=== PATIENT | male | born 1950 | race Hispanic/Latino ===

== ENCOUNTER 2020-08-11 06:22 | Day surgery (SDC) | payer MEDICARE ==
[2020-08-11] MEDS ORDERED: ASPIRIN EC 325 MG TAB PO ONE (06:48)
[2020-08-11 07:09] LABS: Basophils % (Auto) 0.5 % (0.0-1.8); Eosinophils # (Auto) 0.2 K/mm3 (0.0-0.4); Eosinophils % (Auto) 3.6 % (0.0-4.3); Hematocrit 42.8 % (35.5-45.6); Hemoglobin 15.1 gm/dl (11.8-15.2); Lymphocytes # (Auto) 1.6 K/mm3 (1.2-5.4); Lymphocytes % (Auto) 25.7 % (13.4-35.0); Mean Corpuscular HGB Conc 35 % (32-34); Mean Corpuscular Volume 99 fl (84-94); Monocytes # (Auto) 0.6 K/mm3 (0.0-0.8); Monocytes % (Auto) 9.1 % (0.0-7.3); Platelet Count 215 K/mm3 (140-440); Red Blood Count 4.32 M/mm3 (3.65-5.03); Red Cell Distribution Width 13.4 % (13.2-15.2)
[2020-08-11 07:19] LABS: INR 0.97 (0.87-1.13)
[2020-08-11 07:20] LABS: Partial Thromboplastin Time 29.3 Sec. (24.2-36.6)
[2020-08-11 07:27] LABS: Blood Urea Nitrogen 13 mg/dL (9-20); Calcium 9.1 mg/dL (8.4-10.2); Hemolysis Index 5
[2020-08-11 07:40] LABS: BUN/Creatinine Ratio 19
[2020-08-11] MEDS: SODIUM CHLORIDE 0.9% 500 ML 500 ML IV SCH ×2 (07:50→08:58)
[2020-08-11] MEDS ORDERED: HEPARIN/NS 5000 UNIT/500ML 1,000 ML IR ONE (08:14)
[2020-08-11] MEDS ORDERED: LIDOCAINE (2%) 20 MG/1 ML VIAL 20 ML MDV INFILTRATI ONE (08:15)
[2020-08-11] MEDS ORDERED: NITROGLYCERIN SYRINGE 3 ML ONE (08:15)
[2020-08-11] MEDS ORDERED: VERAPAMIL 5 MG/2 ML INJ ONE (08:15)
[2020-08-11] MEDS: fentaNYL 100 MCG/2 ML INJ ONE ×2 (08:54→09:00)
[2020-08-11] MEDS: MIDAZOLAM 2 MG/2 ML INJ ONE ×2 (08:54→09:00)
[2020-08-11] MEDS: HEPARIN 10,000 UNITS/10 ML VIAL ONE ×2 (08:57→09:04)
[2020-08-11] MEDS ORDERED: hydrALAZINE 20 MG/1 ML INJ ONE (09:14)
--- NOTE | 2020-08-11 10:52 | Cardiac Catherization Report ---
DATE OF PROCEDURE: 08/11/2020 CARDIAC CATHETERIZATION REFERRING PHYSICIAN: Dr. Villalta INDICATION FOR PROCEDURE: The patient is a pleasant 69-year-old gentleman with known mild multivessel disease, here for left heart catheterization. Risks, benefits, alternatives explained at length prior to obtaining informed consent. PROCEDURE IN DETAIL: The patient brought to [employer] in a postabsorptive state, prepped and draped in sterile fashion. Ron's test in right hand was normal. 2 mL of 2% lidocaine used to anesthetize the right wrist. A standard 6-Zimbabwean hydrophilic sheath was used to cannulate the right radial artery via modified Seldinger technique. All exchanges performed to exchange a J-tip guidewire. JL3.5 catheter used to engage the left main. No dampening or ventricularization. Cineangiography performed in all projections. JR4 catheter used to cross the aortic valve under fluoroscopic guidance. Left ventriculography performed in 30-degree BENJAMIN, 30-degree CHIRAG projections via hand injections. Catheter flushed. Manual pullback performed with continuous pressure monitoring ____ catheter used to engage the right coronary. No dampening or ventricularization. Cineangiography performed in multiple projections. Next, catheter removed from the body of wire, sheath removed. Manual pressure used to achieve hemostasis. DATA: Aortic pressure is 180/100, LV pressure is 180, LVEDP of 20 mmHg. Left ventriculography reveals normal systolic performance with estimated fraction of 60-65%. No evidence of aortic stenosis. CORONARY ANATOMY: This is a right dominant system. Left main is a short vessel, mild disease, 10-20%, distally bifurcates left anterior descending, left circumflex. It should be noted that the coronary tree is rather small. The caliber of his left main is probably 3.0 in diameter. His left circumflex is a moderate-sized vessel, courses AV groove. Scattered luminal irregularities. No obstructive disease. There is a 50% stenosis in the distal left circumflex. LAD is tortuous, 25% stenosis in the mid segment. Scattered luminal irregularities. No obstructive disease identified. Right coronary is a moderate-sized vessel, courses AV groove, distally bifurcates in the posterior descending and posterolateral branches. No discrete stenoses noted. CONCLUSIONS: 1. The patient remained in normal sinus rhythm throughout the procedure. No dysrhythmias noted. 2. Ipve-yo-frivdobn diffuse nonobstructive disease in this right dominant system. 3. Very minimal distal left main disease, 25% mid LAD stenosis, 50% distal left circumflex stenosis. Scattered luminal irregularities in the right coronary. Small tortuous coronary tree. TAVIA 3 flow throughout. 4. Uncontrolled hypertension. 5. Normal left ventricular systolic performance, estimated ejection fraction of 60-65%. At this point, continue medical therapy, add Ranexa, follow up with Dr. Villalta in the office. Standard radial cares and aggressive blood pressure control. Results of procedure explained to the patient and family. All questions were addressed. I directly supervised the administration of moderate sedation from 8:54-9:30 a.m. with fentanyl and Versed. TID: [id number] RECEIPT: [id number] MEGHANA/SALLY/LEIGHTON
[2020-08-11 11:33] VITALS: BP 157/73
--- NOTE | 2020-08-11 12:06 | Short Stay Summary ---
Short Stay Documentation Date of service: 08/11/20 - History H&P: obtained from office - Allergies and Medications Current Medications: Allergies acetaminophen [From Darvocet-N] Allergy (Verified 08/11/20 07:50) Nausea codeine Allergy (Verified 08/11/20 06:59) Vomiting meperidine [From Demerol] Allergy (Verified 08/11/20 07:50) Nausea propoxyphene [From Darvocet-N] Allergy (Verified 08/11/20 07:50) Nausea Home Medications Medication Instructions Recorded Confirmed Last Taken Type Aspirin [Aspirin BABY CHEW TAB] 81 mg PO QDAY 08/11/20 08/11/20 08/10/20 History 1 tab Atorvastatin [Lipitor Tab] 80 mg PO QHS 08/11/20 08/11/20 08/10/20 History 1 tab Celecoxib [celeBREX] 200 mg PO DAILY 08/11/20 08/11/20 08/10/20 History 1 tab ISOSORBIDE MONOnitrate [Imdur ER] 30 mg PO DAILY 08/11/20 08/11/20 08/10/20 History 1 tab Metoprolol [Lopressor] 25 mg PO DAILY 08/11/20 08/11/20 08/10/20 History 1 tab Nitroglycerin [Nitrostat] 0.4 mg SL Q5M PRN 08/11/20 08/11/20 Unknown History Potassium Chloride [K-Dur] 10 meq PO QDAY 08/11/20 08/11/20 08/10/20 History 1 tab Ranolazine [Ranolazine ER] 1 tab PO BID 08/11/20 08/11/20 08/10/20 History 2 tabs Umeclidinium Brm/Vilanterol Tr 1 each IH DAILY 08/11/20 08/11/20 Unknown History [Anoro Ellipta 62.5-25 Mcg INH] amLODIPine [Norvasc] 5 mg PO DAILY 08/11/20 08/11/20 Unknown History Active Medications Sodium Chloride (Nacl 0.9% 500 Ml) 500 mls @ 50 mls/hr IV DIRECT ANDERSON Stop: 08/11/20 16:59 Last Admin: 08/11/20 08:58 Dose: 50 mls/hr Documented by: - Physical exam General appearance: other (Right radial cath site inspected no bleeding or hematoma. Telfa Tegaderm in place.) - Brief post op/procedure progress note Date of procedure: 08/11/20 Pre-op diagnosis: Angina Post-op diagnosis: same Procedure: LHCsee dictated cath report Anesthesia: local Estimated blood loss: none Condition: stable - Disposition Disposition: DC- TO HOME OR SELFCARE - Discharge Diagnoses (1) Angina of effort Status: Chronic Short Stay Discharge Plan Activity: advance as tolerated Diet: low fat, low cholesterol, low salt Wound: open to air, keep clean and dry, per your surgeon's advice Follow up with: JARRED SMITH MD [Primary Care Provider] - 7 Days DULCE MARIA MORENO MD [Staff Physician] - 7 Days (Patient should follow-up with Dr Moreno in our [facility] [place] office on 09/08/2020 at 3:15 PM. #[id number])
--- NOTE | 2020-08-12 19:21 | Electrocardiograph Report ---
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
== END 2020-08-11 12:45 | disposition home or self-care (01) ==
LOC: CATHLABREC 06:22
PROVIDERS: ATTEND Internal Medicine
DX: R07.89 Other chest pain (principal); I25.118 Atherosclerotic heart disease of native coronary artery with other forms of angina pectoris; I10 Essential (primary) hypertension; E78.00 Pure hypercholesterolemia, unspecified; J44.9 Chronic obstructive pulmonary disease, unspecified; G47.30 Sleep apnea, unspecified; M19.90 Unspecified osteoarthritis, unspecified site; Z88.5 Allergy status to narcotic agent; Z88.8 Allergy status to other drugs, medicaments and biological substances; Z79.899 Other long term (current) drug therapy; Z79.82 Long term (current) use of aspirin; Z87.891 Personal history of nicotine dependence; Z98.890 Other specified postprocedural states; Z96.653 Presence of artificial knee joint, bilateral; Z96.642 Presence of left artificial hip joint; Z98.49 Cataract extraction status, unspecified eye
CPT/HCPCS: 36415; 80048; 85025; 85610; 85730; 93005; 93458; 99156; 99157; C1894; J0360; J1644; J2250; J3010; J7040; Q9967